=== PATIENT | male | born 1980 | race Caucasian/White ===

== ENCOUNTER 2016-11-24 10:43 | Emergency (ER) | payer MEDICAID, SELFPAY ==
[2016-11-24] MEDS ORDERED: Ondansetron HCl/PF 4 MG/2 ML Vial ONE (11:34)
[2016-11-24] MEDS ORDERED: Ketorolac Tromethamine 30 MG/ML VIAL ONE (11:34)
[2016-11-24 11:40] LABS: #Eosinphils 0.1 thou/uL (0.0-0.7); #Lymphocytes 1.6 thou/uL (1.20-3.40); #Monocytes 0.7 thou/uL (0.11-0.59); #Neutrophils 4.8 thou/uL (1.40-6.50); %Basophils 0.5 % (0.0-1.0); %Eosinophils 0.8 % (0.0-10.0); %Monocytes 9.2 % (0.0-10.0); %Neutrophils 67.7 % (42.0-75.0); Hemoglobin 13.6 g/dL (14.0-18.0); Mean Corpuscular HGB CONC 33.8 g/dL (32.0-36.0); Mean Corpuscular Hemoglobin 28.7 pg (27.0-31.0); Mean Corpuscular Volume 84.9 fl (80.0-94.0); Mean Platelet Volume 7.1 fL (7.4-10.4); Platelet Count 275 thou/uL (130-400); RBC Distribution Width 11.8 % (11.5-14.5); Red Blood Cell (RBC) Count 4.73 mill/uL (4.70-6.10); White Blood Cell (WBC) Count 7.1 thou/uL (4.8-10.8)
[2016-11-24 11:42] LABS: Clarity Clear (Clear); Glucose, Urine (Dipstick) Negative (Negative); Leukocyte Negative (Negative); Nitrite Negative (Negative); Protein, Urine (Dipstick) Negative (Neg-Trace); Specific Gravity, Urine 1.015 (1.005-1.030)
[2016-11-24 11:43] LABS: Bilirubin Negative (Negative); Blood, Urine Negative (Negative); Urobilinogen 0.2 mg/dL (0.2-1.0)
[2016-11-24 11:44] LABS: Bacteria/HPF None Seen HPF (None Seen); RBC/HPF None Seen HPF (0-3); Squamous Epithelial 0-3 HPF (0-3); WBC/HPF None Seen HPF (0-3)
[2016-11-24 11:45] LABS: Other Microscopic Description C&S SET UP
[2016-11-24 11:52] LABS: ALT (SGPT) 11 U/L (0-55); AST (SGOT) 13 U/L (5-34); Albumin 3.9 g/dL (3.5-5.0); Alkaline Phosphatase 87 U/L (40-150); Amylase 39 U/L (25-125); Anion Gap 15 mmol/L (10-20); BUN (Urea Nitrogen) 11 mg/dL (8.9-20.6); Bilirubin, Total 0.4 mg/dL (0.2-1.2); Calc. Creatinine Clearance 0 mL/min (70-130); Calcium 9.7 mg/dL (7.8-10.44); Carbon Dioxide 23 mmol/L (22-29); Chloride 104 mmol/L (98-107); Estimated GFR-MDRD Greater than 90; Globulin 3.8 g/dL (2.4-3.5); Glucose 113 mg/dL (70-105); Lipase 9 U/L (8-78); Potassium 3.4 mmol/L (3.5-5.1); Protein, Total 7.7 g/dL (6.0-8.3); Sodium 139 mmol/L (136-145)
--- NOTE | 2016-11-24 13:16 | CT ---
CT ABDOMEN AND PELVIS WITH IV CONTRAST: Date: 11/24/16 HISTORY: Right abdominal pain. FINDINGS: The lung bases are clear. Liver, spleen, pancreas, adrenal glands, and kidneys are normal. No calcif ied gallstones are seen. A small axillary spleen/splenule is seen close to the tail of the pancreas. No free air, free fluid, or lymphadenopathy is noted in the abdomen or pelvis. A normal appearing a ppendix is present. There is fecal material in the colon. No acute osseous abnormalities are seen. T here are small fat-containing bilateral inguinal hernia. IMPRESSION: No evidence of acute process. POS: [facility]
== END 2016-11-24 13:40 | disposition home or self-care (01) ==
LOC: MADERS 10:43
DX: R10.11 Right upper quadrant pain (principal); J45.909 Unspecified asthma, uncomplicated; F41.9 Anxiety disorder, unspecified; F32.9 Major depressive disorder, single episode, unspecified; F17.210 Nicotine dependence, cigarettes, uncomplicated
CPT/HCPCS: 74177; 80053; 81003; 81015; 82150; 83690; 85025; 87086; 96374; 96375; J1885; J2270; J2405

== ENCOUNTER 2016-12-15 13:09 | Emergency (ER) | payer OTHER, SELFPAY | END 2016-12-15 14:19 | disposition home or self-care (01) | LOC: MADERS 13:09 | DX: G89.29 Other chronic pain (principal); M54.5 Low back pain; J45.909 Unspecified asthma, uncomplicated; F41.9 Anxiety disorder, unspecified; F32.9 Major depressive disorder, single episode, unspecified; F17.210 Nicotine dependence, cigarettes, uncomplicated | CPT/HCPCS: 99283 ==

== ENCOUNTER 2017-01-23 18:29 | Emergency (ER) | payer MEDICAID ==
--- NOTE | 2017-01-23 19:47 | RAD ---
THREE VIEWS THORACIC SPINE 01/23/17 CLINICAL HISTORY: Fall with low back pain. FINDINGS: No significant height loss of the thoracic spine. Minimal areas of end plate irregularity and subtle height loss are present, age indeterminate within the thoracic spine. No significant malalignment. IMPRESSION: No evidence of significant compression fracture or subluxation. Minimal multilevel endplate irregularities with minimal associated height loss. Correlate clinically . POS: [email or web address]
[2017-01-23] MEDS ORDERED: HYDROcodone/Acetaminophen 10/325 mg Tablet ONE (20:31)
[2017-01-23] MEDS ORDERED: Diazepam 5 MG TAB ONE (20:31)
[2017-01-23] MEDS ORDERED: Naproxen 500 MG TAB ONE (20:31)
== END 2017-01-23 20:40 | disposition home or self-care (01) ==
LOC: MADERS 18:29
DX: M54.6 Pain in thoracic spine (principal); M54.5 Low back pain; J45.909 Unspecified asthma, uncomplicated; F41.9 Anxiety disorder, unspecified; F32.9 Major depressive disorder, single episode, unspecified; F17.210 Nicotine dependence, cigarettes, uncomplicated; Z79.899 Other long term (current) drug therapy
CPT/HCPCS: 72072